=== PATIENT | male | born 2000 | race Two or more races ===

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

== ENCOUNTER 2023-02-18 17:58 | Emergency (ER) | payer OTHER ==
[~2023-02-18] VITALS: Ht 160 cm; Wt 53.0 kg
[2023-02-18 18:01] VITALS: BP 137/78
[2023-02-18] MEDS ORDERED: SODIUM CHLORIDE 0.9% 1,000 ML IV ONE (18:15)
[2023-02-18] MEDS ORDERED: KETOROLAC 15MG/ML VIAL IV ONE (18:15)
[2023-02-18 18:30] LABS: BASOPHILS % 0.4 % (0.0-2.0); EOSINOPHILS % 1.7 % (0.0-5.0); LYMPHOCYTES % 39.2 % (20.0-50.0); MEAN CORPUSCULAR HEMOGLOBIN 31.2 pg (28.0-32.0); MEAN CORPUSCULAR VOLUME 89.1 fL (80.0-94.0); MEAN PLATELET VOLUME 9.2 fl (7.4-10.4); MONOCYTES % 6.4 % (2.0-8.0); NEUTROPHILS % 52.3 % (40.0-76.0); PLATELET 208 x1000/uL (130-400); RED BLOOD CELL COUNT 4.82 mill/uL (4.7-6.1); RED CELL DISTRIBUTION WIDTH 13.4 % (11.6-14.6)
[2023-02-18 18:41] LABS: CHLORIDE 105 mEq/L (98-107)
[2023-02-18] MEDS ORDERED: IBUP-2029 MT (20:30)
== END 2023-02-18 21:00 | disposition home or self-care (01) ==
LOC: ER 17:58
DX: R07.89 Other chest pain (principal); R42 Dizziness and giddiness
CPT/HCPCS: 36415; 71045; 80053; 83880; 84484; 85025; 85379; 93005; 99285; J7030

== ENCOUNTER 2023-03-01 13:59 | Emergency (ER) | payer OTHER ==
[~2023-03-01] VITALS: Ht 160 cm; Wt 51.0 kg
[~2023-03-01 13:59] MED LIST: IBUP-2029 MT
[2023-03-01 14:05] VITALS: BP 113/74
[2023-03-01] MEDS ORDERED: IBUP-2029 MT (15:09)
[2023-03-01] MEDS ORDERED: IBUPROFEN 600MG TABLET PO ONE (15:15)
== END 2023-03-01 15:57 | disposition home or self-care (01) ==
LOC: ER 13:59
DX: M25.532 Pain in left wrist (principal); V19.9XXA Pedal cyclist (driver) (passenger) injured in unspecified traffic accident, initial encounter; Y93.89 Activity, other specified; Y92.89 Other specified places as the place of occurrence of the external cause; Y99.8 Other external cause status
CPT/HCPCS: 71045; 73110; 99284

== ENCOUNTER 2024-11-29 23:53 | Emergency (ER) | payer OTHER ==
[~2024-11-29] VITALS: Ht 160 cm; Wt 52.4 kg
[2024-11-29 23:57] VITALS: TEMP 36.7; O2SAT 99
[2024-11-29 23:59] VITALS: O2SAT 100
[2024-11-30] MEDS ORDERED: NAPR-1176 MT (02:19)
[2024-11-30 02:31] VITALS: BP 127/72; PULSE 105; RESP 16
[2024-11-30] MEDS: KETOROLAC 15MG/ML VIAL IM ONE (02:31)
== END 2024-11-30 02:31 | disposition home or self-care (01) ==
LOC: ER 23:53
DX: M94.0 Chondrocostal junction syndrome [Tietze] (principal); R06.02 Shortness of breath; Z79.1 Long term (current) use of non-steroidal anti-inflammatories (NSAID)
CPT/HCPCS: 71045; 99283

== ENCOUNTER 2024-12-12 08:56 | Emergency (ER) | payer OTHER ==
[~2024-12-12] VITALS: Ht 160 cm; Wt 64.0 kg
[~2024-12-12 08:56] MED LIST changes: +NAPR-1176 MT
[2024-12-12 08:57] VITALS: O2SAT 99
[2024-12-12 09:06] VITALS: BP 127/66; PULSE 74; RESP 18; TEMP 37; O2SAT 99
== END 2024-12-12 09:48 | disposition home or self-care (01) ==
LOC: ER 08:56
DX: S21.212D Laceration without foreign body of left back wall of thorax without penetration into thoracic cavity, subsequent encounter (principal); X58.XXXD Exposure to other specified factors, subsequent encounter; Z79.1 Long term (current) use of non-steroidal anti-inflammatories (NSAID); Z79.899 Other long term (current) drug therapy
CPT/HCPCS: 99281